=== PATIENT | female | born 1965 | race Caucasian/White ===

== ENCOUNTER 2019-02-17 13:37 | Outpatient (CLI) | payer BC | END 2019-02-17 13:38 | disposition short-term general hospital (02) | LOC: EMS 13:37 | PROVIDERS: ATTEND Surgery | DX: S99.912A Unspecified injury of left ankle, initial encounter (principal); W10.2XXA Fall (on)(from) incline, initial encounter; Y93.01 Activity, walking, marching and hiking; Y92.830 Public park as the place of occurrence of the external cause | CPT/HCPCS: A0425; A0429 ==